=== PATIENT | male | born 1995 | race African-American/Black ===

== ENCOUNTER 2017-04-01 00:31 | Emergency (ER) | payer OTHER ==
[~2017-04-01] VITALS: Ht 177.8 cm; Wt 80.0 kg
[2017-04-01 00:33] VITALS: BP 145/86; PULSE 71; RESP 18; TEMP 97.7; O2SAT 100
[2017-04-01] MEDS ORDERED: LIDOCAINE HCL 1% PF 30 ML VIAL INFIL ONE (01:00)
--- NOTE | 2017-04-01 01:11 | PD ---
HPI Chief Complaint: Fall Time Seen by Provider: 00:48 Travel History International Travel<30 days: No Contact w/Intl Traveler<30days: No Traveled to known affect area: No History of Present Illness HPI 21-year-old male presents to the emergency department the care of his friends for evaluation of laceration to the forehead that he sustained just prior to arrival to the emergency department. Patient admits to drinking 2 or 3 alcoholic beverages this evening and states with other friends he was jumping into the pool and dove into the shallow end of the swimming pool and did strike the bottom multiple with his forehead. Patient states he did not have loss of consciousness immediately was aware that he had hit his head and jumped out of the pool. Patient denies any neck pain. Patient has no visual disturbance altered mentation no neck pain no arm or leg numbness tingling or weakness. Patient also denies any chest pain shortness of breath abdominal pain back injury or other concerns. Patient rates his discomfort that is localized to his forehead 6/10 in intensity. Patient denies other injury. Patient does make note that 2 days ago while playing basketball he to get elbowed in the right side of the face and does have some bruising underneath the right eye that is not new and not related to his injury tonight. [facility] Past Medical History Narrative Medical Negative past medical history; finger surgery; alcohol use; nursing notes reviewed Medical History: Denies Significant Hx ?: Not Past Surgical History Other Surgery: Yes (LEFT PINKIE SURGERY ) Social History Alcohol Use: Yes Tobacco Use: No Substance Use: No Allergies-Medications (Allergen,Severity, Reaction): Coded Allergies: No Known Allergies (Verified Allergy, Unknown, 04/01/17) Reported Meds & Prescriptions Reported Meds & Active Scripts Active No Active Prescriptions or Reported Medications Review of Systems Except as stated in HPI: all other systems reviewed are Neg General / Constitutional: No: Fever, Chills Eyes: No: Diploplia, Blurred Vision, Photophobia HENT: No: Headaches, Neck Stiffness, Neck Pain Cardiovascular: No: Chest Pain or Discomfort Respiratory: No: Shortness of Breath Gastrointestinal: No: Nausea, Vomiting Genitourinary: No: Urgency, Frequency, Dysuria Musculoskeletal: No: Myalgias, Arthralgias Skin: Positive Other, No Rash Psychiatric: No: Anxiety (forehead laceration) Endocrine: No: Heat Intolerance Hematologic/Lymphatic: No: Easy Bruising Physical Exam Narrative GENERAL: Well-developed well-nourished male in no acute distress no respiratory distress GCS 15 SKIN: Warm and dry. Forehead midline 4 cm laceration with bleeding controlled associated soft tissue swelling but no bony abnormalities noted on palpation HEAD: Atraumatic. Normocephalic. No scalp soft tissue swelling or tenderness abrasion or laceration. EYES: Pupils equal and round. Extraocular muscles intact. No scleral icterus. No injection or drainage. ENT: No nasal bleeding or discharge. Mucous membranes pink and moist. NECK: Trachea midline. No JVD. No midline tenderness to direct palpation along the cervical spine and no bony step-off. CARDIOVASCULAR: Regular rate and rhythm. RESPIRATORY: No accessory muscle use. Clear to auscultation. Breath sounds equal bilaterally. GASTROINTESTINAL: Abdomen soft, non-tender, nondistended. Hepatic and splenic margins not palpable. MUSCULOSKELETAL: Extremities without clubbing, cyanosis, or edema. No obvious deformities. Radial pulses 2+ to palpation bilaterally dorsalis pedis pulses 2 + to palpation bilaterally NEUROLOGICAL: Awake and alert. No obvious cranial nerve deficits. Motor grossly within normal limits. Five out of 5 muscle strength in the arms and legs. Sensory exam grossly intact. DTRs 2+ and equal. Normal speech. PSYCHIATRIC: Appropriate mood and affect; insight and judgment normal. Data Data Last Documented VS Vital Signs Date Time Temp Pulse Resp B/P (MAP) Pulse Ox O2 Delivery O2 Flow Rate FiO2 04/01/17 00:33 97.7 71 18 145/86 (105) 100 Room Air Orders Orders Ct Brain W/O Iv Contrast(Rout) (04/01/17 ) Ct Cerv Spine W/O Contrast (04/01/17 ) Lidocaine Pf 1% Inj (Xylocaine-Mpf 1% In (04/01/17 01:00) Ice/Cold Pack (04/01/17 00:48) Apply Cervical Collar (04/01/17 01:11) MDM Medical Decision Making Medical Screen Exam Complete: Yes Emergency Medical Condition: Yes Medical Record Reviewed: Yes Interpretation(s) ct cerv spine: CONCLUSION: No acute cervical spine abnormality is identified. Kevin Baez MD on April 01, 2017 at 1:23 Board Certified Radiologist. This report was verified electronically. ct brain w/o:CONCLUSION: Mild right frontal scalp soft tissue swelling in the area of laceration. No fracture or acute intracranial abnormality is identified. Kevin Baez MD on April 01, 2017 at 1:21 Board Certified Radiologist. This report was verified electronically. Differential Diagnosis Forehead laceration, minor closed head injury, ICH, cervical spine sprain strain fracture cord injury Narrative Course Ice pack applied c-collar ordered imaging studies ordered and laceration repair performed CT brain noncontrast reveals no acute abnormality and CT cervical spine reveals no acute abnormality Laceration was repaired by HORTENC[facility] [place] Patient informed of imaging results in stable for outpatient management Diagnosis Primary Impression: Forehead laceration Qualified Codes: S01.81XA - Laceration without foreign body of other part of head, initial encounter Additional Impression: Minor closed head injury Referrals: Primary Care Physician 2 days Patient Instructions: General Instructions Additional Instructions: Recommend two-day wound check and suture removal at 5-7 days Follow wound care instructions Return to the emergency department for any concerns or change in condition Follow-up with your primary care provider Wound site clean and dry Follow head injury precautions for 24 hours May take as tolerated acetaminophen/Tylenol for minor pain or for fever 100.4F or greater May take ibuprofen/Advil/Motrin every 6-8 hours as needed for pain associated with inflammation for fever 100.4F or greater Do not drink alcoholic beverages for 48 hours Increase fluid hydration Apply ice pack to areas of soft tissue swelling intermittently for next 12-24 hours as tolerated Med/Other Pt SpecificInfo: No Meds Exist/No RX given Scripts No Active Prescriptions or Reported Meds Disposition: 01 DISCHARGE HOME Condition: Stable Camila Pacheco MD Apr 01, 2017 01:11
--- NOTE | 2017-04-01 01:25 | RADRPT ---
EXAM DATE/TIME: 04/01/2017 01:13 [facility] COMPARISON: No previous studies available for comparison. INDICATIONS : Trauma; fall. Laceration on forehead. RADIATION DOSE: 38.20 CTDIvol (mGy) MEDICAL HISTORY : None SURGICAL HISTORY : None. ENCOUNTER: Initial ACUITY: 1 day PAIN SCALE: 6/10 LOCATION: cranial TECHNIQUE: Multiple contiguous axial images were obtained of the head. Using automated exposure control and adj ustment of the mA and/or kV according to patient size, radiation dose was kept as low as reasonably a chievable to obtain optimal diagnostic quality images. DICOM format image data is available electro nically for review and comparison. FINDINGS: CEREBRUM: The ventricles are normal. No evidence of midline shift, mass lesion, hemorrhage or acute infarction . No extra-axial fluid collections are seen. POSTERIOR FOSSA: The cerebellum and brainstem are intact. The 4th ventricle is midline. The cerebellopontine angle i s unremarkable. EXTRACRANIAL: There is mild right frontal scalp soft tissue swelling with subcutaneous air. SKULL: The calvaria is intact. No evidence of skull fracture. CONCLUSION: Mild right frontal scalp soft tissue swelling in the area of laceration. No fracture or acute intracr anial abnormality is identified. Kevin Baez MD on April 01, 2017 at 1:21 Board Certified Radiologist. This report was verified electronically.
--- NOTE | 2017-04-01 01:27 | RADRPT ---
EXAM DATE/TIME: 04/01/2017 01:13 [facility] COMPARISON: No previous studies available for comparison. INDICATIONS : Trauma, fell face first onto ground. RADIATION DOSE: 21.47 CTDIvol (mGy) MEDICAL HISTORY : None SURGICAL HISTORY : None. ENCOUNTER: Initial ACUITY: 1 day PAIN SCALE: 6/10 LOCATION: neck TECHNIQUE: Volumetric scanning of the cervical spine was performed. Multiplanar reconstructions in the sagittal, coronal and oblique axial planes were performed. Using automated exposure control and adjustment o f the mA and/or kV according to patient size, radiation dose was kept as low as reasonably achievable to obtain optimal diagnostic quality images. DICOM format image data is available electronically f or review and comparison. FINDINGS: There is normal sagittal spine alignment of the cervical spine. No anterolisthesis or retrolisthesis is present. The atlantoaxial relationship is within normal limits. There is no prevertebral soft tiss ue swelling present. No fracture or dislocation is identified. No disc herniation is visualized in th e upper cervical spine. The visualized portions of the posterior fossa, paraspinous soft tissues, and upper lung zones demons trate no acute abnormality. CONCLUSION: No acute cervical spine abnormality is identified. Kevin Baez MD on April 01, 2017 at 1:23 Board Certified Radiologist. This report was verified electronically.
--- NOTE | 2017-04-01 01:47 | PD ---
Physical Exam Time Seen by Provider: 13:00 Data Data Last Documented VS Vital Signs Date Time Temp Pulse Resp B/P (MAP) Pulse Ox O2 Delivery O2 Flow Rate FiO2 04/01/17 00:33 97.7 71 18 145/86 (105) 100 Room Air Orders Orders Ct Brain W/O Iv Contrast(Rout) (04/01/17 ) Ct Cerv Spine W/O Contrast (04/01/17 ) Lidocaine Pf 1% Inj (Xylocaine-Mpf 1% In (04/01/17 01:00) Ice/Cold Pack (04/01/17 00:48) Apply Cervical Collar (04/01/17 01:11) MDM Medical Record Reviewed: Yes Supervised Visit with ALEX: No Narrative Course Verbally consents laceration repair. Procedures Procedure Narrative LACERATION LOCATION: Face LENGTH: 4 cm NUMBER OF STITCHES/SHAUNNA: 9 REPAIR: The area of the laceration was prepped with Betadine and sterilely draped. The laceration was infiltrated with 1% lidocaine. The wound was copiously irrigated and explored without evidence of foreign body, tendon injury or neurovascular injury. The wound was closed using 6-0 prolene simple interrupted. This was a single layer repair. A sterile dressing was applied. The patient was advised to keep the dressing clean and dry. Patient tolerated the procedure well. Scripts No Active Prescriptions or Reported Meds Bolivar [place] Apr 01, 2017 01:47
== END 2017-04-01 02:28 | disposition home or self-care (01) ==
LOC: NEPC 00:31
DX: S01.81XA Laceration without foreign body of other part of head, initial encounter (principal); S09.90XA Unspecified injury of head, initial encounter; W51.XXXA Accidental striking against or bumped into by another person, initial encounter; Y93.67 Activity, basketball
CPT/HCPCS: 12013; 70450; 72125

== ENCOUNTER 2017-04-03 16:44 | Emergency (ER) | payer OTHER ==
[~2017-04-03] VITALS: Ht 177.8 cm; Wt 76.0 kg
[2017-04-03 16:45] VITALS: BP 142/79; PULSE 66; RESP 16; TEMP 98.5; O2SAT 100
--- NOTE | 2017-04-03 16:52 | PD ---
HPI Chief Complaint: Laceration/Skin Injury Time Seen by Provider: 16:51 Travel History International Travel<30 days: No Contact w/Intl Traveler<30days: No Traveled to known affect area: No History of Present Illness HPI 21-year-old male presents versus chronic for evaluation of sutures placed in the right forehead 2 days ago. Patient denies any fever or chills. No new injury. No pain. States he was told to return for reevaluation. He has no other symptoms to report. History Social History Alcohol Use: Yes Tobacco Use: No Allergies-Medications (Allergen,Severity, Reaction): Coded Allergies: No Known Allergies (Verified Allergy, Unknown, 04/01/17) Reported Meds & Prescriptions Reported Meds & Active Scripts Active No Active Prescriptions or Reported Medications Review of Systems Except as stated in HPI: all other systems reviewed are Neg Physical Exam Narrative GENERAL: Well-nourished, well-developed patient. SKIN: Focused skin assessment warm/dry. Well approximated, healing laceration on the right forehead. Sutures are in place. No erythema, edema, or drainage. HEAD: Normocephalic. EYES: No scleral icterus. No injection or drainage. NECK: trachea midline. CARDIOVASCULAR: Regular rate RESPIRATORY: No accessory muscle use. GASTROINTESTINAL: Abdomen nondistended. MUSCULOSKELETAL: No cyanosis, or edema. BACK:without obvious deformity. Data Data Last Documented VS Vital Signs Date Time Temp Pulse Resp B/P (MAP) Pulse Ox O2 Delivery O2 Flow Rate FiO2 04/03/17 16:45 98.5 66 16 142/79 (100) 100 Room Air MDM Medical Screen Exam Complete: Yes Emergency Medical Condition: No Differential Diagnosis FOREHEAD LAC RE-ASSESSMENT Narrative Course 21-year-old male presents to emergency department for reevaluation of a forehead laceration. He believes that he was instructed to do so but he has no new complaints and feels as though it is healing well. At this time there are no urgent or emergent needs medical intervention identified. A medical screening exam was performed: At the time of evaluation the presenting medical condition was determined not to be of an emergent nature. The patient was given the option of receiving additional care, but declined. Patient was given options for additional community resources from which to obtain care. The Patient Has Been advised to seek medical attention for their presenting complaint. The patient has been advised to return to the ER at any time if an emergent condition develops. Primary Impression: Encounter for medical screening examination Scripts No Active Prescriptions or Reported Meds Condition: Stable Lisa Sheikh Apr 03, 2017 16:52
== END 2017-04-03 16:56 | disposition left against medical advice (07) ==
LOC: NED 16:44
DX: S01.81XD Laceration without foreign body of other part of head, subsequent encounter (principal); X58.XXXD Exposure to other specified factors, subsequent encounter
CPT/HCPCS: 99282

== ENCOUNTER 2017-04-09 13:22 | Emergency (ER) | payer OTHER ==
[2017-04-09 13:23] VITALS: BP 134/80; PULSE 71; RESP 16; TEMP 97.8; O2SAT 96
--- NOTE | 2017-04-09 13:47 | PD ---
HPI Chief Complaint: Laceration/Skin Injury Time Seen by Provider: 13:45 Travel History International Travel<30 days: No Contact w/Intl Traveler<30days: No Traveled to known affect area: No History of Present Illness HPI Pt is a 21 year old male presenting to the ED for removal of stitches. He had them placed last week. He denies any other complaints. He denies any pain or sign of infection. PFSH Past Medical History Medical History: Denies Significant Hx Tetanus Vaccination: < 5 Years Past Surgical History Other Surgery: Yes (LEFT PINKIE SURGERY ) Social History Alcohol Use: Yes Tobacco Use: No Substance Use: No Allergies-Medications (Allergen,Severity, Reaction): Coded Allergies: No Known Allergies (Verified Allergy, Unknown, 04/09/17) Reported Meds & Prescriptions Reported Meds & Active Scripts Active No Active Prescriptions or Reported Medications Review of Systems Except as stated in HPI: all other systems reviewed are Neg Skin: Positive Other (stitches) Physical Exam Narrative GENERAL: Well developed, well nourished alert Male. SKIN: Warm and dry. 9 intact stitches to forehead. Well approximated, no erythema or drainage noted. HEAD: Normocephalic. EYES: No scleral icterus. No injection or drainage. NECK: Supple, trachea midline. No JVD or lymphadenopathy. CARDIOVASCULAR: Regular rate and rhythm without murmurs, gallops, or rubs. RESPIRATORY: Breath sounds equal bilaterally. No accessory muscle use. GASTROINTESTINAL: Abdomen soft, non-tender, nondistended. MUSCULOSKELETAL: No cyanosis, or edema. BACK: Nontender without obvious deformity. No CVA tenderness. Data Data Last Documented VS Vital Signs Date Time Temp Pulse Resp B/P (MAP) Pulse Ox O2 Delivery O2 Flow Rate FiO2 04/09/17 14:20 04/09/17 13:23 97.8 71 16 96 Orders Orders Ed Discharge Order (04/09/17 13:45) MDM Medical Decision Making Medical Screen Exam Complete: Yes Emergency Medical Condition: Yes Interpretation(s) Vital Signs Date Time Temp Pulse Resp B/P (MAP) Pulse Ox O2 Delivery O2 Flow Rate FiO2 04/09/17 14:20 04/09/17 13:23 97.8 71 16 134/80 (98) 96 Differential Diagnosis wound infection vs normal healing vs stitches removal vs other Narrative Course 9 intact stitches removed without difficulty from forehead. Pt tolerated well. Pt encouraged to apply sunscreen to avoid hyperpigmentation. Pt advised to follow up with PCP or return to the ED for any new or worsening symptoms. Diagnosis Primary Impression: Encounter for removal of sutures Referrals: Primary Care Physician Patient Instructions: General Instructions Additional Instructions: Follow up with your primary doctor Keep sunscreen on wound to prevent discoloration Return to the Emergency Department for any new or worsening symptoms Med/Other Pt SpecificInfo: No Change to Meds Scripts No Active Prescriptions or Reported Meds Disposition: 01 DISCHARGE HOME Condition: Stable Kamilah Ronquillo Apr 09, 2017 13:47
== END 2017-04-09 14:20 | disposition home or self-care (01) ==
LOC: NEPK 13:22
DX: S01.80XD Unspecified open wound of other part of head, subsequent encounter (principal); X58.XXXD Exposure to other specified factors, subsequent encounter; Z48.02 Encounter for removal of sutures
CPT/HCPCS: 99281